=== PATIENT | female | born 1935 | race Caucasian/White ===

== ENCOUNTER 2017-07-24 06:47 | Inpatient (IN) | payer MEDICARE, OTHER ==
[2017-07-24] MEDS ORDERED: ASPIRIN 81 MG CHEWABLE TABLET PO ONE (07:12)
--- NOTE | 2017-07-24 07:14 | Emergency Department Record ---
History of Present Illness - General Chief Complaint: Chest Pain Stated Complaint: CHEST PAIN Time Seen by Provider: 07/24/17 07:08 Source: Patient Mode of Arrival: Wheelchair - History of Present Illness Initial Comments: heaviness on chest started 2 days ago and she is coughing and has History of atrial fibrillation, CAD with [place] 1994, Smokes one half pack per day. DM type 2 , Flew from [place] yesterday 4 hours. Ran out of water pills one month ago but not a prescription. Patient had a carotid endarectomy left 4 months ago. Patient takes toprol xl 100 mg per day and and eliquis 5 mg BID and simvasttin and metformin Complaint: Chest pain Onset/Timin -: Days(s) Pain Location: Substernal Severity: Mild Quality: Other Consistency: Constant Improves With: Nothing Worsens With: Nothing - Related Data Home Medications Medication Instructions Recorded Confirmed Last Taken Apixaban [Eliquis] 5 mg PO DAILY 07/24/17 07/24/17 Unknown Aspirin 81 mg PO DAILY 07/24/17 07/24/17 Unknown Metformin HCl 750 mg PO BID 07/24/17 07/24/17 Unknown Metoprolol Tartrate 100 mg PO DAILY 07/24/17 07/24/17 Unknown Simvastatin [Zocor] 20 mg PO DAILY 07/24/17 07/24/17 Unknown Allergies Allergy/AdvReac Type Severity Reaction Status Date / Time No Known Drug Allergies Allergy Verified 07/24/17 07:00 Travel Screening - Travel/Exposure Within Last 30 Days Have you traveled within the last 30 days?: Yes Location Detail:: [place] - Travel/Exposure Within Last Year Have you traveled outside the [place] in the last year?: No - Additonal Travel Details Have you been exposed to anyone with a communicable illness?: No - Travel Symptoms Symptom Screening: None Review of Systems Reviewed: No additional complaints except as noted below Constitutional: Reports: As per HPI. Denies: Chills, Fever, Malaise, Night sweats, Weakness, Weight change Eyes: Reports: As per HPI. Denies: Eye discharge, Eye pain, Photophobia, Vision change ENT: Reports: As per HPI. Denies: Congestion, Dental pain, Ear pain, Epistaxis , Hearing loss, Throat pain Respiratory: Reports: As per HPI, Cough. Denies: Dyspnea, Hemoptysis, Stridor, Wheezes Cardiovascular: Reports: As per HPI, Chest pain. Denies: Arrhythmia, Dyspnea on exertion, Edema, Murmurs, Orthopnea, Palpitations, Paroxysmal nocturnal dyspnea, Rheumatic Fever, Syncope Endocrine: Reports: As per HPI. Denies: Fatigue, Heat or cold intolerance, Polydipsia, Polyuria Gastrointestinal: Reports: As per HPI. Denies: Abdominal pain, Constipation, Diarrhea, Hematemesis, Hematochezia, Melena, Nausea, Vomiting Genitourinary: Reports: As per HPI. Denies: Abnormal menses, Discharge, Dyspareunia, Dysuria, Frequency, Hematuria, Incontinence, Retention, Urgency Musculoskeletal: Reports: As per HPI. Denies: Arthralgia, Back pain, Gout, Joint swelling, Myalgia, Neck pain Skin: Reports: As per HPI. Denies: Bruising, Change in color, Change in hair/ nails, Lesions, Pruritus, Rash Neurological: Reports: As per HPI. Denies: Abnormal gait, Confusion, Headache, Numbness, Paresthesias, Seizure, Tingling, Tremors, Vertigo, Weakness Psychiatric: Reports: As per HPI. Denies: Anxiety, Auditory hallucinations, Depression, Homicidal thoughts, Suicidal thoughts, Visual hallucinations Hematological/Lymphatic: Reports: As per HPI. Denies: Anemia, Blood Clots, Easy bleeding, Easy bruising, Swollen glands Past Medical History - SOCIAL HISTORY Smoking Status: Current every day smoker Alcohol Use: None Drug Use: None - RESPIRATORY Hx Respiratory Disorders: No - CARDIOVASCULAR Hx Cardio Disorders: Yes Hx Heart Attack: Yes (1994) Comment:: afib - Hx Genitourinary Disorders: No - ENDOCRINE Hx Endocrine Disorders: Yes Hx Diabetes: Yes - MUSCULOSKELETAL Hx Musculoskeletal Disorders: No - PSYCH Hx Psych Problems: No - HEMATOLOGY/ONCOLOGY Hx Hematology/Oncology Disorders: Yes Hx Cancer: Yes Hx Chemotherapy: No Hx Radiation Therapy: No Family Medical History Any Significant Family History?: No Physical Exam - General General Appearance: Alert, Oriented x3, Cooperative, Mild distress - Head Head exam: Normal inspection - Eye Eye exam: Normal appearance, PERRL Pupils: Normal accommodation - ENT ENT exam: Normal exam, Mucous membranes moist, Normal external ear exam, Normal orophraynx, TM's normal bilaterally Ear exam: Normal external inspection. negative: External canal tenderness Nasal Exam: Normal inspection. negative: Discharge, Sinus tenderness Mouth exam: Normal external inspection, Tongue normal Teeth exam: Normal inspection. negative: Dental caries Throat exam: Normal inspection. negative: Tonsillar erythema, Tonsillar exudate - Neck Neck exam: Normal inspection, Full ROM. negative: Tenderness - Respiratory Respiratory exam: Normal lung sounds bilaterally, Rales. negative: Respiratory distress - Cardiovascular Cardiovascular Exam: Regular rate, Normal rhythm, Normal heart sounds - GI/Abdominal GI/Abdominal exam: Soft, Normal bowel sounds. negative: Tenderness - Rectal Rectal exam: Deferred - exam: Deferred - Extremities Extremities exam: Normal inspection, Full ROM, Normal capillary refill. negative: Tenderness - Back Back exam: Reports: Normal inspection, Full ROM. Denies: Muscle spasm, Rash noted, Tenderness - Neurological Neurological exam: Alert, Normal gait, Oriented X3, Reflexes normal - Psychiatric Psychiatric exam: Normal affect, Normal mood - Skin Skin exam: Dry, Intact, Normal color, Warm Course Vital Signs 07/24/17 07/24/17 07/24/17 06:52 07:04 07:08 Temperature 97.7 F Pulse Rate 115 H Pulse Rate [ 125 H 122 H Shank Boner ] Respiratory 20 20 20 Rate Blood Pressure 129/103 Blood Pressure 77/63 119/103 [Right Arm] Pulse Ox 96 96 96 - Reevaluation(s) Reevaluation #1: patient urinated 500 ml in ED 07/24/17 08:53 07/24/17 09:22 CTA chest No PE with some motion artifact which limits the bases and signs of CHF seen Reevaluation #2: Discussed case with Caitlin Hardy and will admit 07/24/17 09:29 Medical Decision Making - Data Complexity MDM Data: Labs Ordered and/or Reviewed (D dimer elevated, trop T neg), X-Ray Ordered and/or Reviewed (chest xray cardiomeg and mild interstitual edema with small pleural effussions consistent with CHF, underlying COPD), EKG Ordered and/ or Reviewed (atrial fib rate 132 to 110 and ,No acute changes ) - Lab Data Result diagrams: 07/24/17 07:07 07/24/17 07:07 Disposition Clinical Impression: Elevated d-dimer CHF (congestive heart failure) Qualifiers: Congestive heart failure type: unspecified Congestive heart failure chronicity : acute Qualified Code(s): I50.9 - Heart failure, unspecified Atrial fibrillation Qualifiers: Atrial fibrillation type: chronic Qualified Code(s): I48.2 - Chronic atrial fibrillation CAD (coronary artery disease) Qualifiers: Coronary Disease-Associated Artery/Lesion type: [place] artery [place] vs. transplanted heart: [place] heart Associated angina: with unspecified angina Qualified Code(s): I25.119 - Atherosclerotic heart disease of [place] coronary artery with unspecified angina pectoris Chest pain Qualifiers: Chest pain type: unspecified Qualified Code(s): R07.9 - Chest pain, unspecified Decision to Admit: Admit from ER Condition: (2) Stable Forms: Patient Portal Access Time of Disposition: 09:28 Quality - Quality Measures Quality Measures: N/A - Blood Pressure Screening Does Patient Have Any of the Following: No, Active Dx of HTN Blood Pressure Classification: Hypertensive Reading Systolic Measurement: 129 Diastolic Measurement: 103 Screening for High Blood Pressure: Patient Exclusion, Hx of HTN [[id number]]
[2017-07-24] MEDS ORDERED: FUROSEMIDE IV 20MG/2ML VIAL IVP ONE (07:17)
[2017-07-24 07:20] LABS: BASO % 0.6 % (0-6); EOS % 1.1 % (0-6); GRAN % 70.6 % (47-80); HEMATOCRIT 40.8 % (35.0-47.0); HEMOGLOBIN 13.3 gm/dl (11.6-16.0); LYMPH % 21.2 % (16-45); MEAN CELL VOLUME 91.7 fl (81-97); MEAN CORPUSCULAR HEMOGLOBIN 29.9 pg (27-33); MEAN CORPUSCULAR HGB CONC 32.6 g/dl (32-36); MEAN PLATELET VOLUME 10.5 fl (7.4-10.4); MONO % 6.5 % (0-9); PLATELET COUNT 213 K/uL (130-400); RED BLOOD COUNT 4.45 M/uL (3.80-5.40); RED CELL DISTRIBUTION WIDTH 15.5 % (11.5-14.5); WHITE BLOOD COUNT W/O DIFF 10.4 K/uL (4.2-12.2)
[2017-07-24] MEDS ORDERED: METOPROLOL SUCC 50 MG TABLET PO ONE ×2 (07:28→10:40)
[2017-07-24 07:34] LABS: BLOOD UREA NITROGEN 15 mg/dL (8-23); CREATININE 0.9 mg/dL (0.5-0.9); EST GLOMERULAR FILTRATION RATE > 60 mL/min
[2017-07-24 07:37] LABS: GLUCOSE,RANDOM 148 mg/dL (74-109)
[2017-07-24 07:41] LABS: PARTIAL THROMBOPLASTIN TIME 24.6 SECONDS (24.5-39.1)
[2017-07-24 08:23] LABS: INFLUENZA A NEGATIVE (NEGATIVE)
[2017-07-24 08:24] LABS: INFLUENZA B NEGATIVE (NEGATIVE)
[2017-07-24 08:54] LABS: CKMB 2.3 ng/mL (<3.77)
[2017-07-24] MEDS ORDERED: NITROGLYCERIN 2% OINT 1GM PKT TOP SCH (10:00)
[2017-07-24] MEDS ORDERED: APIXABAN 5MG TABLET PO SCH (10:00)
[2017-07-24] MEDS ORDERED: NITROGLYCERIN 2% OINT 1GM PKT TOP ONE (11:30)
[2017-07-24] MEDS ORDERED: TEMAZEPAM 15 MG CAPSULE PO PRN (11:30)
[2017-07-24] MEDS ORDERED: ASPIRIN 325 MG TAB ENTERIC-COATED PO SCH (11:30)
[2017-07-24] MEDS ORDERED: METOPROLOL SUCC 50 MG TABLET PO SCH (11:30)
[2017-07-24] MEDS ORDERED: ACETAMINOPHEN 500 MG TABLET PO PRN (11:30)
[2017-07-24] MEDS ORDERED: AL HYDROX/MAG HYDROX 30ML UD PO PRN (11:30)
[2017-07-24] MEDS ORDERED: FUROSEMIDE IV 20MG/2ML VIAL IVP SCH ×2 (11:30→16:00)
[2017-07-24] MEDS ORDERED: PNEUM 23-VAL ADULT IM ONE (11:49)
[2017-07-24] MEDS ORDERED: LISINOPRIL 5 MG TABLET PO SCH (12:45)
--- NOTE | 2017-07-24 17:43 | History & Physical ---
History of Present Illness - Date of Service Date of Service for History & Physical: 07/24/17 - History of Present Illness Admitting Diagnosis: Acute CHF. Chronic atrial fib on elliquis History of Present Illness: 82yo female with CC of chest heaviness. She has history of atrial fibrillation, CA in , diabetes. 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 Patient presented to the ED this morning after having chest heaviness for 2 days. The onset was while she was in [place] visiting a sister. She says it came on suddenly, across her entire chest. She did not have shortness of breath, palpitations or light-headedness. She says it did get worse on the flight home and then persisted so her son brought her to the ED today. While in the ED, she had EKG showing afib with ventricular rate of 130. There were no ST changes. 1st set of enzymes was normal. Her CXR showed CMG with mild interstitial edema and small pleural effusions. No history of CHF and not on any diuretics. She had elevated DDimer and underwent CTA which was negative for PE. She received 150mg of metoprolol succinate which did improve her rate 100- 110 but lowered blood pressure.She was admitted for serial enzymes and possible cardiology consult. 07/24/17- Patient states the heaviness did get a little better with her dose of Toprol. She continues to deny shortness of breath, lower extremity swelling, light-headedness or palpitations. She reports that she has been on eliquis 5mg bid for many years as well as her toprol, both of which are managed by her pcp in [place]. Travel Screening - Travel/Exposure Within Last 30 Days Have you traveled within the last 30 days?: Yes Location Detail:: [place], [place] - Travel/Exposure Within Last Year Have you traveled outside the [place] in the last year?: No - Additonal Travel Details Have you been exposed to anyone with a communicable illness?: No - Travel Symptoms Symptom Screening: None Review of Systems Constitutional: Reports: As per HPI. Denies: Chills, Fever, Malaise, Night sweats, Weakness, Weight change Eyes: Reports: As per HPI. Denies: Eye discharge, Eye pain, Photophobia, Vision change ENT: Reports: As per HPI. Denies: Congestion, Dental pain, Ear pain, Epistaxis , Hearing loss, Throat pain Respiratory: Reports: As per HPI, Cough. Denies: Dyspnea, Hemoptysis, Stridor, Wheezes Cardiovascular: Reports: As per HPI, Chest pain. Denies: Arrhythmia, Dyspnea on exertion, Edema, Murmurs, Orthopnea, Palpitations, Paroxysmal nocturnal dyspnea, Rheumatic Fever, Syncope Endocrine: Reports: As per HPI. Denies: Fatigue, Heat or cold intolerance, Polydipsia, Polyuria Gastrointestinal: Reports: As per HPI. Denies: Abdominal pain, Constipation, Diarrhea, Hematemesis, Hematochezia, Melena, Nausea, Vomiting Genitourinary: Reports: As per HPI. Denies: Abnormal menses, Discharge, Dyspareunia, Dysuria, Frequency, Hematuria, Incontinence, Retention, Urgency Musculoskeletal: Reports: As per HPI. Denies: Arthralgia, Back pain, Gout, Joint swelling, Myalgia, Neck pain Skin: Reports: As per HPI. Denies: Bruising, Change in color, Change in hair/ nails, Lesions, Pruritus, Rash Neurological: Reports: As per HPI. Denies: Abnormal gait, Confusion, Headache, Numbness, Paresthesias, Seizure, Tingling, Tremors, Vertigo, Weakness Psychiatric: Reports: As per HPI. Denies: Anxiety, Auditory hallucinations, Depression, Homicidal thoughts, Suicidal thoughts, Visual hallucinations Hematological/Lymphatic: Reports: As per HPI. Denies: Anemia, Blood Clots, Easy bleeding, Easy bruising, Swollen glands Past Medical History - SOCIAL HISTORY Smoking Status: Current every day smoker Alcohol Use: None Drug Use: None - RESPIRATORY Hx Respiratory Disorders: No - CARDIOVASCULAR Hx Cardio Disorders: Yes Hx Heart Attack: Yes (1994) Hx Irregular Heartbeat: Yes (afib) - NEURO Hx Neuro Disorders: No - GI Hx GI Disorders: No - Hx Genitourinary Disorders: No - ENDOCRINE Hx Endocrine Disorders: Yes Hx Diabetes: Yes - MUSCULOSKELETAL Hx Musculoskeletal Disorders: No - PSYCH Hx Psych Problems: No - HEMATOLOGY/ONCOLOGY Hx Hematology/Oncology Disorders: Yes Hx Cancer: Yes (colon) Hx Chemotherapy: No Hx Radiation Therapy: No Family Medical History Any Significant Family History?: No H&P Meds/Allergies - Allergies Allergies: Allergies Allergy/AdvReac Type Severity Reaction Status Date / Time No Known Drug Allergies Allergy Verified 07/24/17 07:00 - Home Medications Home Medications Medication Instructions Recorded Confirmed Last Taken Apixaban [Eliquis] 5 mg PO BID 07/24/17 07/24/17 Unknown Aspirin 81 mg PO DAILY 07/24/17 07/24/17 Unknown Metformin HCl 750 mg PO BID 07/24/17 07/24/17 Unknown Metoprolol Succinate 100 mg PO DAILY 07/24/17 07/24/17 Unknown Simvastatin [Zocor] 20 mg PO QHS 07/24/17 07/24/17 Unknown - Active Medications Active Medications: Current Medications Acetaminophen (Tylenol 500mg Tab) 500 mg PO Q6H PRN PRN Reason: PAIN/TEMP Al Hydroxide/Mg Hydroxide (Maalox) 30 ml PO Q4H PRN PRN Reason: GI UPSET Apixaban (Eliquis) 5 mg PO BID [facility] Last Admin: 07/24/17 09:59 Dose: 5 mg Aspirin (Ecotrin (Ec)) 325 mg PO DAILY [facility] Last Admin: 07/24/17 11:55 Dose: Not Given Furosemide (Lasix Iv) 20 mg IVP BIDDIUR [facility] Lisinopril (Zestril) 5 mg PO DAILY [facility] Last Admin: 07/24/17 13:30 Dose: Not Given Metoprolol Succinate (Toprol Xl) 100 mg PO DAILY [facility] Last Admin: 07/24/17 11:55 Dose: Not Given Nitroglycerin (Nitro-Bid) 1 gm TOP Q12H [facility] Last Admin: 07/24/17 09:54 Dose: 1 gm Simvastatin (Zocor) 20 mg PO QHS [facility] Temazepam (Restoril) 15 mg PO QHS PRN PRN Reason: INSOMNIA Physical Exam - Vital Signs Vital Signs: Vital Signs - Last 24 Hrs Temp Pulse Pulse Resp BP BP Pulse Ox 07/24/17 13:30 97.5 F L 131 H 16 120/70 95 07/24/17 11:30 98.0 F 144 H 18 106/92 94 L 07/24/17 11:16 120 H 18 111/101 - General General Appearance: Alert, Oriented x3, Cooperative, No acute distress - Head Head exam: Normal inspection - Eye Eye exam: Normal appearance, PERRL Pupils: Normal accommodation - ENT ENT exam: Normal exam, Mucous membranes moist, Normal external ear exam, Normal orophraynx, TM's normal bilaterally Ear exam: Normal external inspection. negative: External canal tenderness Nasal Exam: Normal inspection. negative: Discharge, Sinus tenderness Mouth exam: Normal external inspection, Tongue normal Teeth exam: Normal inspection. negative: Dental caries Throat exam: Normal inspection. negative: Tonsillar erythema, Tonsillar exudate - Neck Neck exam: Normal inspection, Full ROM. negative: Tenderness - Respiratory Respiratory exam: Normal lung sounds bilaterally, Rales. negative: Respiratory distress - Cardiovascular Cardiovascular Exam: Normal heart sounds, Irregular rhythm, Tachycardia - GI/Abdominal GI/Abdominal exam: Soft, Normal bowel sounds. negative: Tenderness - Rectal Rectal exam: Deferred - exam: Deferred - Extremities Extremities exam: Normal inspection, Full ROM, Normal capillary refill. negative: Tenderness - Back Back exam: Reports: Normal inspection, Full ROM. Denies: Muscle spasm, Rash noted, Tenderness - Neurological Neurological exam: Alert, Normal gait, Oriented X3, Reflexes normal - Psychiatric Psychiatric exam: Normal affect, Normal mood - Skin Skin exam: Dry, Intact, Normal color, Warm Results - Labs Result Diagrams: 07/24/17 07:07 07/24/17 07:07 Labs Last 24 Hours: Laboratory Results - last 24 hr 07/24/17 07/24/17 15:11 15:11 Troponin T < 0.010 NT-Pro-B Natriuret Pep 3741.00 H VTE H&P Assessment - Risk for VTE Risk for VTE: Yes Risk Level: High Risk Assessment Date: 07/24/17 Risk Assessment Time: 17:44 VTE Orders Placed or Will Be Placed: Yes Plan - Inpatient Certification Inpatient Certification: Admit to inpatient care: Based on my medical assessment, after consideration of patient's risk factors (age, co-morbidities and patient presenting symptoms and acuity), I expect that this patient will remain in the hospital greater than or equal to two midnights and that the services needed warrant inpatient care because: Patient Risk Factors: [] Estimated length of stay: [] The patient may reasonably be expected to be discharged or transferred to a hospital within 96 hours after admission to [facility]. Services needed: [] Post hospital care (if known): [] I certify that my determination is in accordance with my understanding of Medicare requirements for reasonable and necessary inpatient services. - Detailed Diagnosis and Plan (1) Atrial fibrillation Current Visit: Yes Status: Acute Qualifiers: Atrial fibrillation type: paroxysmal Qualified Code(s): I48.0 - Paroxysmal atrial fibrillation Base Code: I48.91 - UNSPECIFIED ATRIAL FIBRILLATION Comment: 07/24/17- rate improved somewhat with Toprol 150mg, blood pressure dropped to 106/72. Anticoagulated with eliquis 5mg bid. Her rate continued to be between 100- 120bpm. 1st and 2nd sets of CE returned within normal. CTA negative for PE. She received one dose of lasix 20mg iV in the ED with about 500cc output. -continue tele -Discussed this case with Dr. Koenig and we agreed that patient would likely benefit from cardioversion. Dr. Koenig will be able to do this tomorrow at [facility]. I contacted on-call medicine team at [facility], Dr. Mackenzie, and he accepts the admission. Patient will be transferred to [facility] this evening for cardioversion tomorrow. (2) Do not resuscitate Current Visit: Yes Status: Acute Base Code: Z66 - DO NOT RESUSCITATE Comment: 07/24/17- patient is DNR (3) DVT prophylaxis Current Visit: Yes Status: Acute Base Code: [id number] - Comment: 07/24/17- continue eliquis 5mg po bid
--- NOTE | 2017-07-24 20:46 | Discharge Summary ---
Providers Discharge Summary Date: 07/24/17 Date of admission: 07/24/17 11:08 Expected Date of Discharge: 07/24/17 Attending physician: MARY POLLACK Physical Exam - Vital Signs Vital Signs: Vital Signs - Last 24 Hrs Temp Pulse Pulse Resp BP BP Pulse Ox 07/24/17 19:15 96.8 F L 110 H 18 122/97 99 07/24/17 13:30 97.5 F L 131 H 16 120/70 95 07/24/17 11:30 98.0 F 144 H 18 106/92 94 L 07/24/17 11:16 120 H 18 111/101 - General General Appearance: Alert, Oriented x3, Cooperative, No acute distress - Head Head exam: Normal inspection - Eye Eye exam: Normal appearance, PERRL Pupils: Normal accommodation - ENT ENT exam: Normal exam, Mucous membranes moist, Normal external ear exam, Normal orophraynx, TM's normal bilaterally Ear exam: Normal external inspection. negative: External canal tenderness Nasal Exam: Normal inspection. negative: Discharge, Sinus tenderness Mouth exam: Normal external inspection, Tongue normal Teeth exam: Normal inspection. negative: Dental caries Throat exam: Normal inspection. negative: Tonsillar erythema, Tonsillar exudate - Neck Neck exam: Normal inspection, Full ROM. negative: Tenderness - Respiratory Respiratory exam: Normal lung sounds bilaterally, Rales. negative: Respiratory distress - Cardiovascular Cardiovascular Exam: Normal heart sounds, Irregular rhythm, Tachycardia - GI/Abdominal GI/Abdominal exam: Soft, Normal bowel sounds. negative: Tenderness - Rectal Rectal exam: Deferred - exam: Deferred - Extremities Extremities exam: Normal inspection, Full ROM, Normal capillary refill. negative: Tenderness - Back Back exam: Reports: Normal inspection, Full ROM. Denies: Muscle spasm, Rash noted, Tenderness - Neurological Neurological exam: Alert, Normal gait, Oriented X3, Reflexes normal - Psychiatric Psychiatric exam: Normal affect, Normal mood - Skin Skin exam: Dry, Intact, Normal color, Warm Hospitalization - Hospitalization Admission Diagnosis: Acute CHF. Chronic atrial fib on [facility] - Problem List/Discharge Diagnosis (1) Atrial fibrillation Status: Acute Discharge Diagnosis: Atrial fibrillation type: paroxysmal Qualified Code(s): I48.0 - Paroxysmal atrial fibrillation Base Code: I48.91 - UNSPECIFIED ATRIAL FIBRILLATION Comment: 07/24/17- rate improved somewhat with Toprol 150mg, blood pressure dropped to 106/72. Anticoagulated with eliquis 5mg bid. Her rate continued to be between 100- 120bpm. 1st and 2nd sets of CE returned within normal. CTA negative for PE. She received one dose of lasix 20mg iV in the ED with about 500cc output. -continue tele -Discussed this case with Dr. Koenig and we agreed that patient would likely benefit from cardioversion. Dr. Koenig will be able to do this tomorrow at [facility]. I contacted on-call medicine team at [facility], Dr. Mackenzie, and he accepts the admission. Patient will be transferred to [facility] this evening for cardioversion tomorrow. (2) Do not resuscitate Status: Acute Base Code: Z66 - DO NOT RESUSCITATE Comment: 07/24/17- patient is DNR (3) DVT prophylaxis Status: Acute Base Code: [id number] - Comment: 07/24/17- continue eliquis 5mg po bid - Hospitalization Course Disposition: Acute Care Hospital Transfer Hospital Course: 82yo female with CC of chest heaviness. She has history of atrial fibrillation, [place] in , diabetes. She lives in [place], [place] and does not follow with a culinary chef regularly. Patient presented to the ED this morning after having chest heaviness for 2 days. The onset was while she was in [place] visiting a sister. She says it came on suddenly, across her entire chest. She did not have shortness of breath, palpitations or light-headedness. She says it did get worse on the flight home and then persisted so her son brought her to the ED today. While in the ED, she had EKG showing afib with ventricular rate of 130. There were no ST changes. 1st set of enzymes was normal. Her CXR showed CMG with mild interstitial edema and small pleural effusions. No history of CHF and not on any diuretics. She had elevated DDimer and underwent CTA which was negative for PE. She received 150mg of metoprolol succinate which did improve her rate 100- 110 but lowered blood pressure.She was admitted for serial enzymes and possible cardiology consult. 07/24/17- Patient states the heaviness did get a little better with her dose of Toprol. She continues to deny shortness of breath, lower extremity swelling, light-headedness or palpitations. She reports that she has been on eliquis 5mg bid for many years as well as her toprol, both of which are managed by her pcp in [place]. Abnormal Labs: Abnormal Lab Results 07/24/17 07/24/17 Range/Units 15:11 16:30 POC Glucose 112 H (70-110) mg/dL NT-Pro-B Natriuret Pep 3741.00 H (<450) pg/mL Condition at Discharge: (2) Stable Discharge Medications - Discharge Medications Home Medications: Ambulatory Orders Apixaban [Eliquis] 5 mg PO BID 07/24/17 [Last Taken Unknown] Aspirin 81 mg PO DAILY 07/24/17 [Last Taken Unknown] Metformin HCl 750 mg PO BID 07/24/17 [Last Taken Unknown] Metoprolol Succinate 100 mg PO DAILY 07/24/17 [Last Taken Unknown] Simvastatin [Zocor] 20 mg PO QHS 07/24/17 [Last Taken Unknown] Discharge Plan - Discharge Instructions Activity at Discharge: Resume Usual Activities As Tolerated Diet at Discharge: Low Salt Diet Quality Measures - Quality Measures Quality Measures: Atrial Fibrillation & Atrial Flutter: Chronic Anticoagulation Therapy, Advance Directives, Coronary Artery Disease: Antiplatelet Therapy, Documentation of Current Medications in Medical Record, Elder Maltreatment Screen and Follow-Up Plan, Heart Failure, Screening for High Blood Pressure and F/U Documented - Current Medications Quality Measure: Measure #130: Documentation of Current Medications Documentation of Current Medications: <Current Medications Documented/Reviewed> [[id number]] - Blood Pressure Screening Quality Measure: Screening for High Blood Pressure and Follow-Up Documented Does Patient Have Any of the Following: Active Dx of HTN Blood Pressure Classification: Hypertensive Reading Systolic Measurement: 111 Diastolic Measurement: 101 Screening for High Blood Pressure: Patient Exclusion, Hx of HTN [G9744] - Atrial Fibrillation and Atrial Flutter Quality Measure: Atrial Fibrillation & Atrial Flutter: Chronic Anticoagulation Therapy Does Patient Have Any of the Following: No CHADS2 Risk Stratification: Age 75 or Greater, Diabetes Mellitus Risk Stratification Summary: One or more high risk factors OR more than one moderate risk factor exists. [G8972] Anticoagulation Therapy: <Oral anticoagulant Prescribed> [C0224] - Coronary Artery Disease Quality Measure: Measure #6: Coronary Artery Disease (CAD) Antiplatelet Therapy: <ASA or clopidogrel prescribed> [2623A] - Heart Failure (OANH/ARB Therapy) Quality Measure: Heart Failure Left Ventricular Systolic Function: Unknown OANH Inhibitor or ARB Therapy for LVSD: Not Eligible - Heart Failure (Beta-salas Therapy) Quality Measure: Heart Failure Left Ventricular Systolic Function: Unknown Beta-Salas Therapy for LVEF < 40%: <Beta-Salas Therapy Prescribed> [M8470] - Advance Directives Quality Measure: Measure #47: Care Plan Advance Directives Established: No Advance Directives Information Provided To Patient: No Advance Directives on File: No Living Will: Yes Power of Floor Layer Tile: Yes Power of Floor Layer Tile Name: Jose/ Tatyana Advance Care Planning: <Care Plan/Decision Maker Documented; Discussed & Documented> [9293F] - Elder Abuse Suspicion Index Screening: Elder Abuse Suspicion Index Screening Rely on people for bathing, dressing, shopping, banking, etc: No Prevented from getting food, clothes, medication, etc: No Made to feel shamed or threatened by someone: No Forced to sign papers or use money against will: No Feel afraid, touched in ways not wanted or hurt physically: No Poor eye contact, withdrawn, malnourished, cuts or bruises: No Screening Result: Negative result EASI Reference Information: Gregorio GOODE, Richard C, Solomon D, Virgie Bateman.Development and validation of a tool to assist physicians identification of elder abuse: The Elder Abuse Suspicion Index (EASI ). Journal of Elder Abuse and Neglect, 2008; 20 (3): 276-300. - Elder Maltreatment Screen Quality Measures: Elder Maltreatment Screen and Follow-Up Plan Elder Maltreatment Screen: <Negative, No Follow-Up Plan Required> [W2635]
[2017-07-24] MEDS ORDERED: SIMVASTATIN 20 MG TABLET PO SCH (22:00)
--- NOTE | 2017-07-25 07:17 | RADIOLOGY REPORT ---
EXAM: CHEST, TWO VIEWS HISTORY: SHORTNESS OF BREATH, CHEST PRESSURE FOR TWO DAYS. TECHNIQUE: PA and lateral views of the chest were obtained. Comparison: None. FINDINGS: Mild cardiomegaly is present. Calcification and torsion of the aorta. Blunting of the costophrenic angles bilaterally probably by small bilateral pleural effusions. There may be some Renee B lines particularly laterally on the right as well. Clinical correlation as to mild CHF suggested. No pneumothorax evident. The lungs appear somewhat hyperinflated suggesting underlying COPD as well. IMPRESSION: 1. CARDIOMEGALY WITH ADDITIONAL FINDINGS SUGGESTING MILD CHF. 2. HYPERINFLATION SUGGESTING UNDERLYING COPD. 3. CALCIFICATION AND TORSION OF THE AORTA. JOB NUMBER: [id number] [facility]
--- NOTE | 2017-07-25 07:23 | CT ANGIOGRAM REPORT ---
EXAM: CTA OF THE CHEST FOR PE WITH POST PROCESSING HISTORY: ELEVATED D-DIMER, RECENT FOUR HOUR PLANE RIDE, FEELS LIKE PRESSURE IN CHEST FOR TWO DAYS. TECHNIQUE: CTA of the chest was performed following the intravenous administration of 85 ml of Omnipaque 350 as the IV contrast. Post processing on an independent workstation was performed with multiple 3D MIP series obtained. Comparison: No prior chest CT. Comparison is made with the two view chest x- ray performed earlier this morning. FINDINGS: There is some motion artifact in the lung bases posteriorly bilaterally limiting interpretation for small peripheral PE in the lower lobes posteriorly. Elsewhere no appearance to suggest PE identified. There is ectasia of the ascending aorta measuring about 3.9 cm in size. Coronary artery calcification is present. Cardiomegaly is present. There are bilateral pleural effusions right greater than left. Clinical correlation as to CHF suggested. No pneumothorax evident. Some hypertrophic spurring in the spine. IMPRESSION: 1. MOTION ARTIFACT LIMITS INTERPRETATION FOR A SMALL PE IN THE LOWER LOBES POSTERIORLY. ELSEWHERE NO PE IDENTIFIED. 2. CARDIOMEGALY WITH BILATERAL PLEURAL EFFUSIONS, RIGHT GREATER THAN LEFT AND CLINICAL CORRELATION TO MILD CHF SUGGESTED. 3. 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 4. CORONARY ARTERY CALCIFICATION. JOB NUMBER: [id number] [facility]
== END 2017-07-24 19:15 | disposition short-term general hospital (02) | DRG 310 ==
LOC: ER 06:47 → MEDSURG 11:08
PROVIDERS: ADMIT Internal Medicine; ATTEND Internal Medicine
DX: I48.0 Paroxysmal atrial fibrillation (principal); Z79.01 Long term (current) use of anticoagulants; I25.10 Atherosclerotic heart disease of native coronary artery without angina pectoris; E11.9 Type 2 diabetes mellitus without complications; Z72.0 Tobacco use; Z79.84 Long term (current) use of oral hypoglycemic drugs; I50.9 Heart failure, unspecified; Z85.038 Personal history of other malignant neoplasm of large intestine; I10 Essential (primary) hypertension
CPT/HCPCS: 99285 ×2; 96374; 82550; 85025; 85730; 82553; 80048; 87400; 84484; 85379; 71046; 71275; 93005; 93010; Q9967; J3490; 36416; 82948; 83880; 99236; J1940